=== PATIENT | male | born 1945 | race Caucasian/White ===

== ENCOUNTER 2016-07-07 14:59 | Inpatient (IN) | payer MEDICARE ==
[~2016-07-07] VITALS: Ht 182.9 cm; Wt 117.9 kg
[2016-07-07 16:25] VITALS: BP 160/94
[2016-07-07 17:00] VITALS: BP 160/94
[2016-07-07] MEDS ORDERED: DOCUSATE SODIUM 283 MG/5 ML MINI-ENEMA PR PRN (17:30)
[2016-07-07] MEDS ORDERED: ACETAMINOPHEN 325 MG TABLET PO PRN (17:30)
[2016-07-07 18:45] LABS: BASOPHILS % (AUTO) 0.3 % (0.0-2.0); EOSINOPHILS % (AUTO) 1.5 % (1.0-6.0); HEMATOCRIT 47.5 % (41-53); HEMOGLOBIN 15.9 g/dL (13.5-17.5); LYMPHOCYTES # (AUTO) 1.8 K/uL (1.0-4.8); LYMPHOCYTES % (AUTO) 17.3 % (22.0-44.0); MEAN CORPUSCULAR HEMOGLOBIN 32.2 pg (26.0-34.0); MEAN CORPUSCULAR HGB CONC 33.6 G/dL (31.0-37.0); MEAN CORPUSCULAR VOLUME 96 fL (80-100); MONOCYTES # (AUTO) 1.1 K/uL (0.1-1.0); MONOCYTES % (AUTO) 10.3 % (2.0-9.0); NEUTROPHILS # (AUTO) 7.5 K/uL (1.8-7.7); NEUTROPHILS % (AUTO) 70.6 % (40.0-70.0); PLATELET COUNT (AUTO) 169 K/uL (150-450); RED BLOOD CELL COUNT(AUTO) 4.94 MIL/uL (4.50-5.90); RED CELL DISTRIBUTION WIDTH 13.7 % (11.5-14.5); WHITE BLOOD COUNT (AUTO) 10.6 K/uL (4.5-11.0)
[2016-07-07 19:09] LABS: ALANINE AMINOTRANSFERASE 28 U/L (12-78); ALBUMIN 3.5 g/dL (3.4-5.0); ANION GAP 7 mmol/L (8-16); ASPARTATE AMINOTRANSFERASE 17 U/L (15-37); CALCIUM, TOTAL 8.7 mg/dL (8.8-10.5); CARBON DIOXIDE 30 mmol/L (22-29); CHLORIDE 100 mmol/L (98-107); CREATININE 0.79 mg/dL (0.60-1.30); GLOMERULAR FILTR. RATE CALC > 60 mL/min (>60); POTASSIUM 4.5 mmol/L (3.5-5.1); SODIUM SERUM 137 mmol/L (136-145); TOTAL PROTEIN, SERUM 7.1 g/dL (6.4-8.2); UREA NITROGEN, BLOOD 9 mg/dL (7-18)
[2016-07-07] MEDS: ENOXAPARIN SODIUM 40 MG/0.4 ML PF SYRINGE SQ SCH (20:20)
[2016-07-07] MEDS: DOCUSATE SODIUM 100 MG CAPSULE PO SCH (20:20)
[2016-07-07] MEDS: SENNA 187 MG TABLET PO SCH (20:20)
[2016-07-07] MEDS: ATORVASTATIN CALCIUM 40 MG TABLET PO SCH (20:21)
[2016-07-07 20:30] VITALS: BP 146/73
[2016-07-07] MEDS: CAPTOPRIL 12.5 MG TABLET PO SCH (20:57)
[2016-07-07 21:12] LABS: APPEARANCE,URINE CLEAR (CLEAR); GLUCOSE, URINE (UA) NEGATIVE (NEGATIVE); KETONES,URINE 40 mg/dL (NEGATIVE); LEUKOCYTE ESTERASE ,URINE NEGATIVE (NEGATIVE); OCCULT BLOOD,URINE TRACE (NEGATIVE); PROTEIN,URINE NEGATIVE (NEGATIVE)
[2016-07-07 21:13] LABS: ADD UA MICROSCOPIC YES
[2016-07-07 21:27] LABS: SQUAMOUS EPITHELIAL CELL,UR Few /LPF (None Seen)
[2016-07-07 21:30] LABS: WBC,URINE 0-2 /HPF (0-5)
[2016-07-07 23:50] VITALS: BP_SYST 118; BP_SYST 146; BP_DIAS 68; BP_DIAS 88
[2016-07-08] MEDS ORDERED: TAMS0.4C32 PO (06:20)
[2016-07-08] MEDS ORDERED: CAPT25TA3 PO (06:20)
[2016-07-08 07:09] VITALS: BP 116/57
[2016-07-08] MEDS: DOCUSATE SODIUM 100 MG CAPSULE PO SCH ×2 (08:53→20:39)
[2016-07-08] MEDS: CAPTOPRIL 12.5 MG TABLET PO SCH ×2 (08:53→20:39)
[2016-07-08] MEDS: CLOPIDOGREL BISULFATE 75 MG TABLET PO SCH (08:53)
[2016-07-08] MEDS: ASPIRIN 81 MG CHEWABLE TABLET PO SCH (08:53)
[2016-07-08 15:12] VITALS: BP 158/85
[2016-07-08] MEDS: ATORVASTATIN CALCIUM 40 MG TABLET PO SCH (20:38)
[2016-07-08 20:39] VITALS: BP 153/75
[2016-07-08] MEDS: ENOXAPARIN SODIUM 40 MG/0.4 ML PF SYRINGE SQ SCH (20:39)
[2016-07-08] MEDS: SENNA 187 MG TABLET PO SCH (20:39)
[2016-07-09] VITALS: BP 142/70
[2016-07-09 07:29] VITALS: BP 142/80
[2016-07-09] MEDS: CAPTOPRIL 12.5 MG TABLET PO SCH ×2 (08:26→21:10)
[2016-07-09] MEDS: DOCUSATE SODIUM 100 MG CAPSULE PO SCH ×2 (08:26→21:09)
[2016-07-09] MEDS: CLOPIDOGREL BISULFATE 75 MG TABLET PO SCH (08:26)
[2016-07-09] MEDS: ASPIRIN 81 MG CHEWABLE TABLET PO SCH (08:26)
[2016-07-09 17:30] VITALS: BP 141/67
[2016-07-09] MEDS: TEMAZEPAM 15 MG CAPSULE PO PRN (21:09)
[2016-07-09] MEDS: ENOXAPARIN SODIUM 40 MG/0.4 ML PF SYRINGE SQ SCH (21:09)
[2016-07-09] MEDS: SENNA 187 MG TABLET PO SCH (21:10)
[2016-07-09] MEDS: ATORVASTATIN CALCIUM 40 MG TABLET PO SCH (21:10)
[2016-07-09 22:17] VITALS: BP 145/75
[2016-07-10 00:35] VITALS: BP 138/70
[2016-07-10 07:09] VITALS: BP 148/81
[2016-07-10] MEDS: DOCUSATE SODIUM 100 MG CAPSULE PO SCH ×2 (08:23→20:40)
[2016-07-10] MEDS: ASPIRIN 81 MG CHEWABLE TABLET PO SCH (08:23)
[2016-07-10] MEDS: CAPTOPRIL 12.5 MG TABLET PO SCH ×2 (08:23→20:40)
[2016-07-10] MEDS: CLOPIDOGREL BISULFATE 75 MG TABLET PO SCH (08:24)
[2016-07-10 15:37] VITALS: BP 137/70
[2016-07-10] MEDS: ENOXAPARIN SODIUM 40 MG/0.4 ML PF SYRINGE SQ SCH (20:39)
[2016-07-10] MEDS: SENNA 187 MG TABLET PO SCH (20:40)
[2016-07-10] MEDS: ATORVASTATIN CALCIUM 40 MG TABLET PO SCH (20:40)
[2016-07-10 20:46] VITALS: BP 139/84
[2016-07-10] MEDS: TEMAZEPAM 15 MG CAPSULE PO PRN (21:28)
[2016-07-11] VITALS: BP 142/91
[2016-07-11 07:15] VITALS: BP 155/88
[2016-07-11] MEDS: DOCUSATE SODIUM 100 MG CAPSULE PO SCH ×2 (08:39→20:29)
[2016-07-11] MEDS: CLOPIDOGREL BISULFATE 75 MG TABLET PO SCH (08:39)
[2016-07-11] MEDS: CAPTOPRIL 12.5 MG TABLET PO SCH ×2 (08:39→20:29)
[2016-07-11] MEDS: ASPIRIN 81 MG CHEWABLE TABLET PO SCH (08:39)
[2016-07-11 15:03] VITALS: BP 138/54
[2016-07-11 20:03] VITALS: BP 141/57
[2016-07-11] MEDS: ATORVASTATIN CALCIUM 40 MG TABLET PO SCH (20:29)
[2016-07-11] MEDS: ENOXAPARIN SODIUM 40 MG/0.4 ML PF SYRINGE SQ SCH (20:29)
[2016-07-11] MEDS: SENNA 187 MG TABLET PO SCH (20:29)
[2016-07-11] MEDS: TEMAZEPAM 15 MG CAPSULE PO PRN (21:21)
[2016-07-11 23:09] VITALS: BP 134/73
[2016-07-12 07:23] VITALS: BP 135/73
[2016-07-12] MEDS: ASPIRIN 81 MG CHEWABLE TABLET PO SCH (08:02)
[2016-07-12] MEDS: CLOPIDOGREL BISULFATE 75 MG TABLET PO SCH (08:02)
[2016-07-12] MEDS: CAPTOPRIL 12.5 MG TABLET PO SCH ×2 (08:02→20:17)
[2016-07-12] MEDS: DOCUSATE SODIUM 100 MG CAPSULE PO SCH ×2 (08:02→20:17)
[2016-07-12 15:53] VITALS: BP 127/67
[2016-07-12 19:52] VITALS: BP 120/61
[2016-07-12] MEDS: ATORVASTATIN CALCIUM 40 MG TABLET PO SCH (20:17)
[2016-07-12] MEDS: SENNA 187 MG TABLET PO SCH (20:17)
[2016-07-12] MEDS: ENOXAPARIN SODIUM 40 MG/0.4 ML PF SYRINGE SQ SCH (20:17)
[2016-07-12 23:23] VITALS: BP 118/74
[2016-07-13] MEDS ORDERED: ASPI500T19 PO (02:03)
[2016-07-13 07:17] VITALS: BP 144/67
[2016-07-13] MEDS: CLOPIDOGREL BISULFATE 75 MG TABLET PO SCH (08:32)
[2016-07-13] MEDS: CAPTOPRIL 12.5 MG TABLET PO SCH ×2 (08:32→20:25)
[2016-07-13] MEDS: ASPIRIN 81 MG CHEWABLE TABLET PO SCH (08:32)
[2016-07-13] MEDS: DOCUSATE SODIUM 100 MG CAPSULE PO SCH ×2 (08:32→20:25)
[2016-07-13] MEDS: DICLOFENAC SODIUM 1% 100 GM GEL [4GM] TP SCH ×2 (15:05→20:25)
[2016-07-13 16:02] VITALS: BP 133/69
[2016-07-13 20:04] VITALS: BP 148/75
[2016-07-13] MEDS: ENOXAPARIN SODIUM 40 MG/0.4 ML PF SYRINGE SQ SCH (20:22)
[2016-07-13] MEDS: SENNA 187 MG TABLET PO SCH (20:25)
[2016-07-13] MEDS: ATORVASTATIN CALCIUM 40 MG TABLET PO SCH (20:25)
[2016-07-13] MEDS: TEMAZEPAM 15 MG CAPSULE PO PRN (21:23)
[2016-07-14] VITALS: BP 111/71
[2016-07-14 07:11] VITALS: BP 120/74
[2016-07-14] MEDS: ASPIRIN 81 MG CHEWABLE TABLET PO SCH (08:27)
[2016-07-14] MEDS: CLOPIDOGREL BISULFATE 75 MG TABLET PO SCH (08:27)
[2016-07-14] MEDS: CAPTOPRIL 12.5 MG TABLET PO SCH ×2 (08:27→21:11)
[2016-07-14] MEDS: DOCUSATE SODIUM 100 MG CAPSULE PO SCH ×2 (08:27→21:11)
[2016-07-14] MEDS: DICLOFENAC SODIUM 1% 100 GM GEL [4GM] TP SCH ×2 (08:28→21:18)
[2016-07-14 15:33] VITALS: BP 146/80
[2016-07-14 21:00] VITALS: BP 144/77
[2016-07-14] MEDS: ATORVASTATIN CALCIUM 40 MG TABLET PO SCH (21:10)
[2016-07-14] MEDS: ENOXAPARIN SODIUM 40 MG/0.4 ML PF SYRINGE SQ SCH (21:10)
[2016-07-14] MEDS: TEMAZEPAM 15 MG CAPSULE PO PRN (21:11)
[2016-07-14] MEDS: SENNA 187 MG TABLET PO SCH (21:11)
[2016-07-15 00:30] VITALS: BP 122/62
[2016-07-15 07:33] VITALS: BP 118/53
[2016-07-15] MEDS: DICLOFENAC SODIUM 1% 100 GM GEL [4GM] TP SCH ×2 (08:04→20:07)
[2016-07-15] MEDS: CLOPIDOGREL BISULFATE 75 MG TABLET PO SCH (08:04)
[2016-07-15] MEDS: ASPIRIN 81 MG CHEWABLE TABLET PO SCH (08:04)
[2016-07-15] MEDS: DOCUSATE SODIUM 100 MG CAPSULE PO SCH ×2 (08:04→20:07)
[2016-07-15] MEDS: CAPTOPRIL 12.5 MG TABLET PO SCH ×2 (08:04→20:07)
[2016-07-15] MEDS ORDERED: NAPROXEN 500 MG TABLET PO PRN (11:45)
[2016-07-15 15:00] VITALS: BP 144/74
[2016-07-15] MEDS: ENOXAPARIN SODIUM 40 MG/0.4 ML PF SYRINGE SQ SCH (20:07)
[2016-07-15] MEDS: ATORVASTATIN CALCIUM 40 MG TABLET PO SCH (20:07)
[2016-07-15] MEDS: TEMAZEPAM 15 MG CAPSULE PO PRN (20:07)
[2016-07-15 20:08] VITALS: BP 137/79
[2016-07-15] MEDS: SENNA 187 MG TABLET PO SCH (20:08)
[2016-07-16] VITALS: BP 132/60
[2016-07-16] MEDS ORDERED: [UNRECOGNIZED DRUG - OTHER] PO (07:03)
[2016-07-16] MEDS ORDERED: [UNRECOGNIZED DRUG - OTHER] PO (07:03)
[2016-07-16] MEDS ORDERED: [UNRECOGNIZED DRUG - OTHER] OU (07:08)
[2016-07-16] MEDS ORDERED: [UNRECOGNIZED DRUG - OTHER] PO (07:08)
[2016-07-16 07:14] VITALS: BP 132/72
[2016-07-16] MEDS: DOCUSATE SODIUM 100 MG CAPSULE PO SCH ×2 (08:24→20:38)
[2016-07-16] MEDS: DICLOFENAC SODIUM 1% 100 GM GEL [4GM] TP SCH ×2 (08:24→20:37)
[2016-07-16] MEDS: CLOPIDOGREL BISULFATE 75 MG TABLET PO SCH (08:24)
[2016-07-16] MEDS: ASPIRIN 81 MG CHEWABLE TABLET PO SCH (08:24)
[2016-07-16] MEDS: CAPTOPRIL 12.5 MG TABLET PO SCH ×2 (08:24→20:38)
[2016-07-16 15:25] VITALS: BP 124/72
[2016-07-16 20:35] VITALS: BP 154/79
[2016-07-16] MEDS: ENOXAPARIN SODIUM 40 MG/0.4 ML PF SYRINGE SQ SCH (20:37)
[2016-07-16] MEDS: ATORVASTATIN CALCIUM 40 MG TABLET PO SCH (20:37)
[2016-07-16] MEDS: SENNA 187 MG TABLET PO SCH (20:38)
[2016-07-16] MEDS: TEMAZEPAM 15 MG CAPSULE PO PRN (21:34)
[2016-07-16 23:26] VITALS: BP 133/63
[2016-07-17] MEDS: CAPTOPRIL 12.5 MG TABLET PO SCH (08:49)
[2016-07-17] MEDS: CLOPIDOGREL BISULFATE 75 MG TABLET PO SCH (08:49)
[2016-07-17] MEDS: DOCUSATE SODIUM 100 MG CAPSULE PO SCH (08:49)
[2016-07-17] MEDS: ASPIRIN 81 MG CHEWABLE TABLET PO SCH (08:49)
[2016-07-17 08:51] VITALS: BP 148/73
[2016-07-17] MEDS: DICLOFENAC SODIUM 1% 100 GM GEL [4GM] TP SCH (09:00)
[2016-07-17] MEDS ORDERED: DSS100 PO (13:13)
[2016-07-17] MEDS ORDERED: ATOR40TA71 PO (13:13)
[2016-07-17] MEDS ORDERED: SENN-30 PO (13:13)
[2016-07-17] MEDS ORDERED: ASPI81 PO (13:13)
[2016-07-17] MEDS ORDERED: CAPT12.55 PO (13:13)
[2016-07-17] MEDS ORDERED: CLOP75 PO (13:13)
== END 2016-07-17 13:55 | disposition home health service (06) | DRG 57 ==
LOC: 2WR 16:25
PROVIDERS: ADMIT Physical Medicine & Rehabilitation; ATTEND Physical Medicine & Rehabilitation
DX: I69.351 Hemiplegia and hemiparesis following cerebral infarction affecting right dominant side (principal); M81.0 Age-related osteoporosis without current pathological fracture; N40.0 Benign prostatic hyperplasia without lower urinary tract symptoms; I25.10 Atherosclerotic heart disease of native coronary artery without angina pectoris; I10 Essential (primary) hypertension; E78.5 Hyperlipidemia, unspecified; E66.9 Obesity, unspecified; I65.22 Occlusion and stenosis of left carotid artery; F10.10 Alcohol abuse, uncomplicated; G47.00 Insomnia, unspecified; Z74.09 Other reduced mobility; Z68.35 Body mass index [BMI] 35.0-35.9, adult; Z98.890 Other specified postprocedural states; Z98.61 Coronary angioplasty status; I69.391 Dysphagia following cerebral infarction; I69.322 Dysarthria following cerebral infarction; I69.398 Other sequelae of cerebral infarction
CPT/HCPCS: 87081; 92507; 92508; 92523; 94760; 94761; 97032; 97110; 97112; 97116; 97150; 97162; 97166; 97530; 97535; 99366; J1650

== ENCOUNTER → 2016-08-17 | Outpatient (CLI) | payer MEDICARE ==
[~2016-08-17] MED LIST: ASPI81 PO; ATOR40TA71 PO; CAPT12.55 PO; CLOP75 PO; DSS100 PO; SENN-30 PO; TAMS0.4C32 PO
== END | disposition home or self-care (01) ==
LOC: RADMN 16:02
PROVIDERS: ATTEND Family Medicine
DX: M17.12 Unilateral primary osteoarthritis, left knee (principal); M25.762 Osteophyte, left knee

== ENCOUNTER → 2017-03-03 | Outpatient (CLI) | payer MEDICARE ==
[~2017-03-03] MED LIST changes: +SENN-175 PO; -SENN-30 PO
== END | disposition home or self-care (01) ==
LOC: RADPV 15:05
PROVIDERS: ATTEND Family Medicine
DX: M19.012 Primary osteoarthritis, left shoulder (principal)